=== PATIENT | male | born 1955 | race Caucasian/White ===

== ENCOUNTER 2018-09-15 09:37 | Emergency (ER) | payer MEDICARE, MEDICAID, SELFPAY ==
[2018-09-15 09:47] VITALS: BP 118/70; PULSE 62; RESP 16; TEMP 37; O2SAT 98
[2018-09-15] MEDS: Tetracaine 0.5% 4 ML BTL OP (09:55)
--- NOTE | 2018-09-15 11:18 | W.ED.GENAD ---
Discharge Plan Disposition Patient Disposition: HOME Discharge Details Chief Complaint: EyeProblem Clinical Impression: Abrasion of cornea, left Primary Care Provider: None,None ED Provider: Cameron Shipman Home Meds and New Rx's Prescriptions: No Action No Known Home Meds RF: 0 Discharge Instructions Instructions: Corneal Abrasion (ED) Additional Instructions: Please follow-up with an order entry specialist as soon as possible. Use antibiotic ointment applied to your left eye 4 times a day for the next 10 days. Please contact your primary care physician to arrange follow-up. Return to the ER for any worsening or new concerning symptoms. Referrals: [facility] [Outside] Discharge Data Discharge Date/Time-TO BE ENTERED AT DEPARTURE: 09/15/18 13:15 Medical Decision Making 11:15 --33-year-old male who sustained trauma to his left eye last night when a piece of wood hit him in the face. Large corneal abrasion noted at 12:00, negative Andres sign, tender along his superior orbit. Concern for orbital fracture. Plan to CT orbits. Tetanus immunization. 12:55 --CT of the orbit interpreted by radiology: Globe intact, no fracture. Plan to treat with erythromycin ointment. Close outpatient follow-up with ophthalmology. I stressed need to call opthalmology to arrange timely followup. Usual and customary discharge instructions were provided.Patient verbalized understanding of my discharge instructions. HPI General Mode of arrival: ambulatory. Date/Time Provider Initiated Documentation: 09/15/18 09:50. Limitations to Documentation: no limitations. Information obtained by: patient. HPI Narrative: 33-year-old male who presents today with eye injury. Patient notes that he sustained trauma to his left eye last night when a piece of wood hit him in the face. He has pain superior to left eye on orbital rim and also a sensation in his left eye. Foreign body sensation is moderate, worse with blinking. He has not associated MANDEL. His eye has been teary but no other discharge. Related Data Home Medications Medication Instructions Recorded Confirmed Unknown [No Known Home Meds] 09/15/18 09/15/18 Allergies Allergy/AdvReac Type Severity Reaction Status Date / Time No Known Allergies Allergy Unverified 09/15/18 09:50 General Stated Complaint: EyeProblem CARLITOS: 2 Review of Systems Constitutional Denies headache(s) Eyes Reports as per HPI ENT Denies dental pain, Denies headache(s), Denies nasal trauma and Denies sinus pain Neurologic Denies headache(s) PFSH Social History Smoking/Tobacco Use Status: Never Exam Const General: cooperative and no acute distress [facility] Head: no palpable skull fracture, no Patel's sign, no lacerations and periorbital ecchymosis (left) General nose exam: external nose normal Face and sinus: no lacerations Mouth: moist mucous membranes Eyes Alignment and Position: alignment normal Periorbital: periorbital findings abnormal left periorbital swelling and periorbital ecchymosis; no crepitus Conjunctivae: conjunctival abnormality left conjunctival injection Sclera: normal sclerae Cornea: corneas abnormal on the left fluorescein used and abrasion linear and at the following clock position (12:00); with no foreign body noted Pupils: PERRL EOM: EOM intact bilaterally Skin General skin exam: no rashes or lesions noted Trauma: no lacerations Neuro General: alert, awake, oriented x3 and tone normal Course Vital Signs Temperature 37 C 09/15/18 09:47 Pulse 62 09/15/18 09:47 Respiratory Rate 16 09/15/18 09:47 Blood Pressure 118/70 09/15/18 09:47 Pulse Oximetry 98 09/15/18 09:47 Temperature 37 C 09/15/18 09:47 Temperature Source Skin 09/15/18 09:47 Pulse 62 09/15/18 09:47 Respiratory Rate 16 09/15/18 09:47 Respiratory Effort Non-Labored 09/15/18 09:47 Blood Pressure 118/70 09/15/18 09:47 Pulse Oximetry 98 09/15/18 09:47 Oxygen Delivery Method Room Air 09/15/18 09:47 Oxygen Flow Rate 0 09/15/18 09:47 Pain Level 6 09/15/18 09:47
[2018-09-15] MEDS: Balanced Salt Solution 15 ML BTL OP (12:09)
[2018-09-15] MEDS: Fluorescein STRIPS 100/BOX OP (12:10)
--- NOTE | 2018-09-15 12:20 | DI.CT_ITS ---
SYMPTOMS/DIAGNOSIS: PAIN, WOOD LOG TO FACE, CORNEAL DEFECT, SUPRAORBITAL TENDERNESS TO PALPATION ORBITAL CT: CT examination of the orbital region was performed without IV contrast administration. The patient reportedly had injury to the left eye with a corneal defect. There is a small quantity of gas seen external to the globe extraconally on the left and there is associated soft tissue edema of the periorbital soft tissues. No abnormality of the globe or retrobulbar tissues is seen. Optic nerve and extraocular musculature appear intact. Right orbit is unremarkable. Paranasal sinuses are well aerated. No facial fracture seen. CONCLUSION: No evidence of intraorbital injury. Extraconal findings associated with known trauma appear to be present.
[2018-09-15 12:36] VITALS: BP 119/70; PULSE 59; RESP 16; TEMP 37.3; O2SAT 97
[2018-09-15] MEDS: Erythromycin Ophth Oint 3.5 GM TUBE OS (13:12)
[2018-09-15 13:16] VITALS: BP 119/70; PULSE 59; RESP 16; TEMP 37.3; O2SAT 97
== END 2018-09-15 13:15 | disposition home or self-care (01) ==
PROVIDERS: Emergency Provider Student in an Organized Health Care Education/Training Program
DX: S05.02XA Injury of conjunctiva and corneal abrasion without foreign body, left eye, initial encounter (principal); W22.8XXA Striking against or struck by other objects, initial encounter
CPT/HCPCS: 99284; 70480